=== PATIENT | female | born 1975 ===

== ENCOUNTER 2017-03-29 05:48 | Inpatient (IN) | payer MEDICAID, MEDICARE, OTHER ==
[2017-03-29 05:50] VITALS: BMI 27.4
[2017-03-29 05:52] VITALS: O2SAT 95
--- NOTE | 2017-03-29 05:55 | ED PDOC ---
Psych Transfer Clearance - Clearance Statement Clearance Statement: Reviewed vital signs, lab results and transfer papers. Patient clinically stable for psychiatric admission.
[2017-03-29] MEDS ORDERED: DiphenhydrAMINE 50 mg/ml Inj IM PRN (10:33)
[2017-03-29] MEDS ORDERED: Alum-Mag Hydrox-Simethicone Susp (30 mL) PO PRN (10:33)
[2017-03-29] MEDS ORDERED: Magnesium Hydroxide Susp 30 ml UD PO PRN (10:33)
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
--- NOTE | 2017-03-29 13:32 | CP.PCM.CON ---
History of Present Illness - History of Present Illness History of Present Illness: Reason for Consult: per hospital protocol HPI 41 female PMH heroin abuse (20 bags a day for past 2 months), multiple substance abuse cocaine and marijuana admitted to psych for heroin withdrawal and auditory and visual hallucinations. Patient visibly uncomfortable due to withdrawal sx. Otherwise no other complaints ROS: per HPI, 12 systems reviewed and negative PMH: substance abuse PSH: denies FH: denies SH: heroin, marijuana, cocaine Meds: as below Allergies: NKDA Vitals: reviewed and currently stable Exam: GEN: WDWN, alert, cooperative, uncomfortable due to withdrawal HEENT: NCAT, PERRL, EOMI NECK: supple, no JVD, no lymphadenopathy CARDIAC: +S1S2 RRR LUNG: CTAB No WRR ABD: SOFT NT ND BSX4 NO MASSES NO HSM EXT: +pedal pulses, equal strength NEURO: AAOx3 SKIN warm, dry PSYCH normal mood, normal affect Assessment and Plan: 41 female PMH heroin abuse (20 bags a day for past 2 months), multiple substance abuse cocaine and marijuana admitted to psych for heroin withdrawal and auditory and visual hallucinations. Patient visibly uncomfortable due to withdrawal sx. Otherwise no other complaints Substance abuse management per psychiatry Past Patient History - Infectious Disease Hx of Infectious Diseases: None - Past Medical History & Family History Past Medical History?: Yes - Past Social History Smoking Status: Heavy Smoker > 10 Cigarettes Daily - CARDIAC Hx Hypertension: No - PULMONARY Hx Tuberculosis: No - NEUROLOGICAL Hx Seizures: No (Pt denied) - HEENT Hx HEENT Problems: No - RENAL Hx Chronic Kidney Disease: No - ENDOCRINE/METABOLIC Hx Endocrine Disorders: No - HEMATOLOGICAL/ONCOLOGICAL Hx Human Immunodeficiency Virus (HIV): No - INTEGUMENTARY Hx Dermatological Problems: No - MUSCULOSKELETAL/RHEUMATOLOGICAL Hx Falls: No - GASTROINTESTINAL Hx Gastrointestinal Disorders: No - GENITOURINARY/GYNECOLOGICAL Hx Sexually Transmitted Disorders: No - PSYCHIATRIC Hx Bipolar Disorder: Yes Hx Post Traumatic Stress Disorder: Yes Hx Substance Use: Yes - SURGICAL HISTORY Hx Cholecystectomy: Yes - ANESTHESIA Hx Anesthesia: Yes Hx Anesthesia Reactions: No Hx Malignant Hyperthermia: No Meds Allergies/Adverse Reactions: Allergies Allergy/AdvReac Type Severity Reaction Status Date / Time mushroom AdvReac RASH Verified 12/26/16 10:21 - Medications Medications: Current Medications Acetaminophen (Tylenol 325mg Tab) 650 mg PO Q4 PRN PRN Reason: Pain, moderate (4-7) Al Hydrox/Mg Hydrox/Simethicone (Maalox Plus 30 Ml) 30 ml PO Q4 PRN PRN Reason: Dyspepsia Clonidine HCl (Catapres) 0.1 mg PO Q8 [facility] Stop: 04/01/17 12:00 Last Admin: 03/29/17 11:02 Dose: 0.1 mg Cyclobenzaprine HCl (Flexeril) 5 mg PO TID PRN PRN Reason: Muscle spasm Diphenhydramine HCl (Benadryl) 50 mg IM Q6 PRN PRN Reason: Extrapyramidal S/S Unable PO Diphenhydramine HCl (Benadryl) 50 mg PO Q6 PRN PRN Reason: Extrapyramidal Symptoms Fluoxetine HCl (Prozac) 20 mg PO DAILY [facility] Gabapentin (Neurontin) 300 mg PO TID [facility] Last Admin: 03/29/17 13:24 Dose: 300 mg Haloperidol (Haldol) 5 mg PO Q4 PRN PRN Reason: Agitation Haloperidol Lactate (Haldol) 5 mg IM Q4 PRN PRN Reason: Agitation, Unable to Take PO Ibuprofen (Motrin Tab) 600 mg PO Q8 PRN PRN Reason: Pain, moderate (4-7) Last Admin: 03/29/17 11:03 Dose: 600 mg Loperamide HCl (Imodium) 2 mg PO QID PRN PRN Reason: Diarrhea Lorazepam (Ativan) 2 mg IM Q4 PRN PRN Reason: Anxiety/Agitation,Unable PO Lorazepam (Ativan) 2 mg PO Q4 PRN PRN Reason: Anxiety/Agitation Magnesium Hydroxide (Milk Of Magnesia) 30 ml PO HS PRN PRN Reason: Constipation Nicotine (Nicoderm Cq) 1 patch TD DAILY [facility] Last Admin: 03/29/17 13:24 Dose: 1 patch Ondansetron HCl (Zofran Tab) 4 mg PO Q6 PRN PRN Reason: Nausea/Vomiting Last Admin: 03/29/17 11:01 Dose: 4 mg Quetiapine Fumarate (Seroquel) 100 mg PO HS [facility] Trazodone HCl (Desyrel) 50 mg PO HS [facility] Results - Vital Signs Recent Vital Signs: Last Vital Signs Temp 97.5 F L 03/29/17 09:01 Pulse 60 03/29/17 11:02 Resp 20 03/29/17 09:01 BP 116/68 03/29/17 11:02 Pulse Ox 95 03/29/17 05:50
[2017-03-30 06:45] LABS: BASO % 0.5 % (0.0-2.0); EOS # 0.1 K/uL (0.0-0.7); EOS % 2.3 % (0.0-4.0); HEMOGLOBIN 13.1 g/dL (12.0-16.0); LYMPH # 1.8 K/uL (1.0-4.3); MEAN CELL VOLUME 72.5 fl (81.0-99.0); MEAN CORPUSCULAR HEMOGLOBIN 22.4 pg (27.0-31.0); MEAN CORPUSCULAR HGB CONC 30.9 g/dL (33.0-37.0); MEAN PLATELET VOLUME 9.7 fl (7.2-11.7); MONO # 0.4 K/uL (0.0-0.8); MONO % 7.3 % (0.0-10.0); NEUT # 2.7 K/uL (1.8-7.0); NEUT % 53.9 % (50.0-75.0); NRBC % 0.1 % (0.0-0.0); RBC 5.85 Mil/uL (3.80-5.20); RED CELL DISTRIBUTION WIDTH 18.3 % (11.5-14.5); WHITE BLOOD COUNT 5.1 K/uL (4.8-10.8)
[2017-03-30 07:06] LABS: ALB/GLOB RATIO 1.2 (1.0-2.1); ALBUMIN 4.1 g/dL (3.5-5.0); ALT/SGPT 85 U/L (9-52); AST/SGOT 84 U/L (14-36); BLOOD UREA NITROGEN 8 mg/dl (7-17); CALCIUM 9.7 mg/dL (8.4-10.2); GFR AFRICAN-AMERICAN > 60; GFR NON-AFRICAN AMERICAN > 60; HDL CHOLESTEROL 32 MG/DL (30-70)
[2017-03-30 07:17] LABS: LDL CHOLESTEROL 70 mg/dL (0-129)
[2017-03-30 07:21] LABS: T4 12.4 ug/dl (5.5-11.0)
--- NOTE | 2017-03-30 13:33 | PCM.PYCHPN ---
Psychiatric Progress Note - Psychiatric Progress Note Patient seen today, length of contact: in treatment team Patient Chief Complaint: i feel sick Problems Identified/Issues Discussed: pt came to treatment team. yawning frequently, nauseated, c/o cramps, diarrhea and generalized feeling of discomfort. she is not able to eat at this point secondary to nausea. unsure if she want's inpt rehab. she was sober 8 months with outpt, but has been using 20bags of heroin intranasally for 6 months. Medical Problems: opioid withdrawal Medication Change: No Medical Record Reviewed: Yes Mental Status Examination - Cognitive Function Orientation: Person, Place, Situation, Time Memory: Intact Attention: WNL Concentration: WNL Association: WN Fund of Knowledge: [facility] Decription of patient's judgement and insights: fair - Mood Mood: Depressed, Anxious - Affect Affect: Constricted - Speech Speech: Appropriate - Formal Thought Process Formal Thought Process: No Impairment - Suicidal Ideation Suicidal Ideation: No - Homicidal Ideation Homicidal Ideation: No Goal/Treatment Plan - Goal/Treatment Plan Need for Continued Stay: Remain at risks for inpatient hospitalization, Discharge may exacerbated symptoms Progress Toward Problem(s) and Goals/Treatment Plan: opioid dependence bipolar unspecified will continue current treatment encourage pt to take some po intake t/c referral to inpt rehab Estimated Date of D/C: 04/03/17
[2017-03-31] MEDS: Trimethobenzamide 200 mg/2 mL Inj IM PRN ×3 (01:29→16:03)
[2017-03-31 09:16] VITALS: RESP 18
--- NOTE | 2017-03-31 10:38 | PCM.PYCHPN ---
Psychiatric Progress Note - Psychiatric Progress Note Patient seen today, length of contact: discussed with team Patient Chief Complaint: i feel much better today Problems Identified/Issues Discussed: pt states her diarrhea, nausea and other withdrawal symptoms are resolved today. she ate meals. she is asking to return to her outpatient program. she denies cravings to use drugs. denies any depression/rocael or suicidal thoughts. Medical Problems: opioid withdrawal Medication Change: No Medical Record Reviewed: Yes Mental Status Examination - Cognitive Function Orientation: Person, Place, Situation, Time Memory: Intact Attention: WNL Concentration: WNL Association: WNL Fund of Knowledge: [facility] Decription of patient's judgement and insights: fair - Mood Mood: Depressed, Anxious - Affect Affect: Constricted - Speech Speech: Appropriate - Formal Thought Process Formal Thought Process: No Impairment - Suicidal Ideation Suicidal Ideation: No - Homicidal Ideation Homicidal Ideation: No Goal/Treatment Plan - Goal/Treatment Plan Need for Continued Stay: Remain at risks for inpatient hospitalization, Discharge may exacerbated symptoms Progress Toward Problem(s) and Goals/Treatment Plan: opioid dependence bipolar unspecified will continue current treatment discharge tomorrow to outpt providers Estimated Date of D/C: 04/03/17
[2017-04-01 09:15] VITALS: BP 99/74; PULSE 76; TEMP 97.9
[2017-04-01] MEDS ORDERED: Pneumococcal 23-Valent Vaccine IM ONE (10:00)
--- NOTE | 2017-04-01 10:30 | PCM.PYCHDC ---
Mental Status Examination - Mental Status Examination Orientation: Person, Place, Situation, Time Memory: Intact Mood: Neutral Affect: Broad Speech: Appropriate Attention: WNL Concentration: WNL Association: WNL Fund of Knowledge: WNL Formal Thought Process: No Impairment Description of patient's judgement and insight: fair Psychotic Thoughts and Behaviors: denies any a/v hallucinations Suicidal Ideation: No Current Homicidal Ideation?: No Plan: pt denies any suicidal or homicidal thoughts/plans or intent Discharge Summary - Discharge Note Reason for Hospitalization: pt using heroin, was looking for detox. vague suicidal statements. Psychiatric History (includes Medical, Family, Personal Hx): history of heroin dependence and bipolar disorder per her report Consultations:: List each consultation separately and include: 1. Reason for request. 2. Findings. 3. Follow-up Consultations: seen by the hospitalist Summary of Hospital Course include:: 1. Description of specific treatment plan utilized for patients during their course of treatmen. 2. Summarize the time- course for resolution of acute symptoms and/or regressed behaviors. 3. Describe issues identified and worked on during hospitalization. 4. Describe medication utilized. 5. Describe medical problems identified and treated. 6. Reassessment of suicide risk Summary of Hospital Course: pt was admitted to [facility] and oriented to the unit. pt placed on routine safety protocols. pt started on medications for opioid withdrawal. she was restarted on her home medications. she initially was with nausea, vomiting and other herion withdrawal, however these symptoms abated. she was tolerating the reintroduction of her home medications. she was denying any suicidal or homicidal thoughts at the time of discharge and was agreeable to follow up with her outpatient referrals. - Final Diagnosis (DSM 5) Condition upon Discharge: GOOD DSM 5: opioid dependence bipolar disorder Disposition: HOME/ ROUTINE Follow-up Treatment Plan: take medications as prescribed do not use alcohol, tobacco or other illicit substances call 911 if any suicidal or homicidal thoughts attend aa/na meetings daily follow up with your outpatient appointments as directed Prescriptions/Medication Reconciliation: cloNIDine [Catapres] 0.1 mg PO BID #30 tab Nicotine 14 mg/24 hr [Nicoderm CQ] 1 patch TD DAILY #28 patch Ondansetron [Zofran Tab] 4 mg PO Q6 PRN #7 tab PRN Reason: Nausea/Vomiting traZODone [Desyrel] 50 mg PO HS #15 tab - Smoking Cessation Smoking Cessation Medication prescribed: Yes - Antipsychotic Medications Pt discharged on 2 or more routine antipsychotic medications: No
== END 2017-04-01 10:20 | disposition home or self-care (01) | DRG 885 ==
LOC: H.ER 05:48 → H.ERHOLD 05:53 → H.PSYCH 07:00
PROVIDERS: ADMIT Psychiatry & Neurology Psychiatry; ATTEND Psychiatry & Neurology Psychiatry
PROC: GZHZZZZ Group Psychotherapy (ICD-10-PCS; principal; 2017-03-30)
PROC: GZ51ZZZ Individual Psychotherapy, Behavioral (ICD-10-PCS; 2017-03-30)
DX: F31.9 Bipolar disorder, unspecified (principal); F11.23 Opioid dependence with withdrawal; F19.959 Other psychoactive substance use, unspecified with psychoactive substance-induced psychotic disorder, unspecified; F43.10 Post-traumatic stress disorder, unspecified; Z87.891 Personal history of nicotine dependence; Z90.49 Acquired absence of other specified parts of digestive tract; Z91.410 Personal history of adult physical and sexual abuse; Z91.5 Personal history of self-harm; F14.10 Cocaine abuse, uncomplicated; F12.90 Cannabis use, unspecified, uncomplicated; Z23 Encounter for immunization